=== PATIENT | male | born 1970 | race American Indian/Alaskan Native ===

== ENCOUNTER 2016-12-11 18:16 | Emergency (ER) | payer OTHER, BC ==
[2016-12-11 23:23] VITALS: BP 155/79
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
== END 2016-12-11 23:53 | disposition home or self-care (01) ==
LOC: ED 18:16
DX: M54.5 Low back pain (principal); V89.2XXA Person injured in unspecified motor-vehicle accident, traffic, initial encounter; Y93.89 Activity, other specified; Y99.9 Unspecified external cause status; Y92.410 Unspecified street and highway as the place of occurrence of the external cause
CPT/HCPCS: 99282